=== PATIENT | female | born 1985 ===

== ENCOUNTER 2017-10-04 06:06 | Inpatient (IN) | payer OTHER ==
[~2017-10-04] VITALS: Ht 167.6 cm; Wt 99.8 kg
[~2017-10-04 06:06] MED LIST: ATABEX EC CAPL1 EACH; NIFE60TA3; PNEU16DI2; SINGULAIR 10MG10 MG; SYMBICORT 16010.2 GM; XOPENEX0.63 MG/3
[2017-10-04] MEDS ORDERED: NIFE60TA3 PO (07:54)
[2017-10-04] MEDS ORDERED: PRENATAL TABLE1 EACH PO (07:56)
== END 2017-10-06 15:36 | disposition home or self-care (01) | DRG 767 ==
LOC: LDR 06:06 → O/R 12:00 → OB/GYN 14:15
PROVIDERS: Obstetrics & Gynecology
PROC: 0UL70ZZ Occlusion of Bilateral Fallopian Tubes, Open Approach (ICD-10-PCS; 2017-10-04)
PROC: 0KQM0ZZ Repair Perineum Muscle, Open Approach (ICD-10-PCS; 2017-10-04)
PROC: 0UQMXZZ Repair Vulva, External Approach (ICD-10-PCS; 2017-10-04)
PROC: 3E033VJ Introduction of Other Hormone into Peripheral Vein, Percutaneous Approach (ICD-10-PCS; 2017-10-04)
PROC: 4A1HXCZ Monitoring of Products of Conception, Cardiac Rate, External Approach (ICD-10-PCS; 2017-10-04)
PROC: 10907ZC Drainage of Amniotic Fluid, Therapeutic from Products of Conception, Via Natural or Artificial Opening (ICD-10-PCS; 2017-10-04)
PROC: 4A033R1 Measurement of Arterial Saturation, Peripheral, Percutaneous Approach (ICD-10-PCS; 2017-10-04)
PROC: 10E0XZZ Delivery of Products of Conception, External Approach (ICD-10-PCS; principal; 2017-10-04 12:00)
DX: O70.1 Second degree perineal laceration during delivery (principal); Z37.0 Single live birth; Z3A.37 37 weeks gestation of pregnancy; Z30.2 Encounter for sterilization; O24.419 Gestational diabetes mellitus in pregnancy, unspecified control